=== PATIENT | male | born 1965 | race Caucasian/White ===

== ENCOUNTER 2020-05-19 10:01 | Outpatient (CLI) | payer BC, OTHER ==
[2020-05-19] MEDS ORDERED: KRILL OIL PO (10:40)
[2020-05-19] MEDS ORDERED: VITAMIN B12 PO (10:40)
[2020-05-19] MEDS ORDERED: MULT-658 PO (10:40)
[2020-05-19] MEDS ORDERED: THIA50TA4 PO (10:40)
== END 2020-05-19 23:59 | disposition home or self-care (01) ==
LOC: STAR 10:01
PROVIDERS: ATTEND Surgery
DX: Z20.822 Contact with and (suspected) exposure to COVID-19 (principal); K40.90 Unilateral inguinal hernia, without obstruction or gangrene, not specified as recurrent
CPT/HCPCS: U0003

== ENCOUNTER 2020-05-24 12:17 | Day surgery (SDC) | payer OTHER ==
[~2020-05-24] VITALS: Ht 170.2 cm; Wt 62.4 kg
[~2020-05-24 12:17] MED LIST: KRILL OIL PO; MULT-658 PO; THIA50TA4 PO; VITAMIN B12 PO
[2020-05-24 12:55] VITALS: BP 161/98
[2020-05-24] MEDS ORDERED: CHLORHEXIDINE 15 ML UDC PO ONE (13:00)
[2020-05-24] MEDS ORDERED: LACTATED RINGERS 1,000 ML IV SCH (13:00)
[2020-05-24] MEDS ORDERED: EPINEPHRINE 1 MG/ML, 1ML ONE (14:17)
[2020-05-24] MEDS ORDERED: BUPIVACAINE/PF 0.5% ONE (14:17)
[2020-05-24] MEDS ORDERED: FENTANYL PF 250 MCG/5ML ONE (14:27)
[2020-05-24] MEDS ORDERED: MIDAZOLAM 1 MG/ML, 2ML ONE (14:27)
[2020-05-24] MEDS ORDERED: PROPOFOL 10 MG/ML, 20ML ONE (14:29)
[2020-05-24] MEDS ORDERED: CEFAZOLIN 1,000 MG ONE ×2 (14:29)
[2020-05-24] MEDS ORDERED: ROCURONIUM 10MG/ML,5ML ONE (14:29)
[2020-05-24] MEDS ORDERED: DEXAMETHASONE 4 MG/ML, 1ML ONE ×2 (14:29)
[2020-05-24] MEDS ORDERED: KETOROLAC 30 MG/1 ML ONE (14:44)
[2020-05-24] MEDS ORDERED: ONDANSETRON 2MG/ML, 2ML ONE (14:44)
[2020-05-24] MEDS ORDERED: SUGAMMADEX 200 MG/2 ML IVPush ONE (14:44)
[2020-05-24] MEDS ORDERED: MIDAZOLAM 1 MG/ML, 2ML IV PRN (15:30)
[2020-05-24] MEDS ORDERED: hydrALAzine 20 MG/ML, 1ML IV PRN (15:30)
[2020-05-24] MEDS ORDERED: PROMETHAZINE 25 MG/ML, 1ML IVPush PRN (15:30)
[2020-05-24] MEDS ORDERED: DIAZEPAM 5 MG/ML, 2ML IVPush PRN (15:30)
[2020-05-24] MEDS ORDERED: OXYcodone 5 MG/5 ML ORAL.SOL UDC PO PRN (15:30)
[2020-05-24] MEDS ORDERED: ACETAMINOPHEN 325 MG TABLET PO PRN (15:30)
[2020-05-24] MEDS ORDERED: PROMETHAZINE 12.5 MG SUPP PR PRN (15:30)
[2020-05-24] MEDS ORDERED: MEPERIDINE/PF 25MG/0.5ML IVPush PRN (15:30)
[2020-05-24] MEDS ORDERED: EPHEDRINE 50 MG/ML, 1ML IVPush PRN (15:30)
[2020-05-24] MEDS ORDERED: FENTANYL PF 100 MCG/2ML IV PRN (15:30)
[2020-05-24] MEDS ORDERED: ALBUTEROL SULFATE 2.5 MG/3 ML NPPB PRN (15:30)
[2020-05-24] MEDS ORDERED: LABETALOL 5MG/ML, 20ML IV PRN (15:30)
[2020-05-24] MEDS ORDERED: DIPHENHYDRAMINE 50 MG/ML, 1ML IVPush PRN ×2 (15:30)
[2020-05-24] MEDS ORDERED: ONDANSETRON 2MG/ML, 2ML IVPush PRN (15:30)
[2020-05-24] MEDS ORDERED: HYDROmorphone 1 MG/ML, 1ML INJ IVPush PRN (15:30)
[2020-05-24] MEDS ORDERED: FENTANYL PF 100 MCG/2ML ONE (15:39)
[2020-05-24] MEDS ORDERED: OXYcodone 5 MG/5 ML ORAL.SOL UDC ONE (16:05)
[2020-05-24] MEDS ORDERED: hydrALAzine 20 MG/ML, 1ML ONE (16:15)
== END 2020-05-24 17:35 | disposition home or self-care (01) ==
LOC: OUT 12:17
PROVIDERS: ATTEND Surgery
DX: K40.90 Unilateral inguinal hernia, without obstruction or gangrene, not specified as recurrent (principal); K66.0 Peritoneal adhesions (postprocedural) (postinfection); J44.9 Chronic obstructive pulmonary disease, unspecified; F17.210 Nicotine dependence, cigarettes, uncomplicated; Z79.899 Other long term (current) drug therapy
CPT/HCPCS: 49650; C1781; J0171; J0360; J0690; J1100; J1885; J2250; J2405; J2704; J3010; J7120; S2900